=== PATIENT | male | born 1950 | race Caucasian/White ===

== ENCOUNTER 2019-07-29 08:40 | Outpatient (CLI) | payer MEDICARE, BC ==
--- NOTE | 2019-07-29 09:56 | ULT ---
GALLBLADDER ULTRASOUND: HISTORY: Right upper quadrant pain. FINDINGS: Real-time imaging of the right upper quadrant shows some tiny echogenic mobile densities within the g allbladder. These do not definitely shadow and appear similar to a previous ultrasound exam of 12/06. No gallbladder wall thickening. The common duct is 4 mm. Visualized liver parenchyma is unr emarkable. The right kidney is normal in size. There is a small cyst measuring 1.5 cm. The pancreas is obscure d. IMPRESSION: Small nonshadowing mobile echogenic densities within the gallbladder. These are possibly tiny gallst ones with some minimal sludge. This is a very similar appearance to the previous 2017 exam. The com mon duct is normal in caliber. The technologist describes a negative ultrasound Chambers's sign. POS: [facility]KI
== END 2019-07-29 08:41 | disposition home or self-care (01) ==
LOC: BICULT 08:40
PROVIDERS: ATTEND Internal Medicine Gastroenterology
DX: R10.9 Unspecified abdominal pain (principal); K21.9 Gastro-esophageal reflux disease without esophagitis; K30 Functional dyspepsia; K82.8 Other specified diseases of gallbladder
CPT/HCPCS: 76705

== ENCOUNTER 2023-03-15 08:17 | Outpatient (CLI) | payer MEDICARE | END 2023-03-15 08:18 | disposition home or self-care (01) | LOC: BICULT 08:17 | PROVIDERS: ATTEND Student in an Organized Health Care Education/Training Program | DX: Z13.6 Encounter for screening for cardiovascular disorders (principal) | CPT/HCPCS: 76775 ==

== ENCOUNTER 2025-01-23 07:41 | Outpatient (CLI) | payer MEDICARE | END 2025-01-23 07:42 | disposition home or self-care (01) | LOC: ULT 07:41 | PROVIDERS: ATTEND Student in an Organized Health Care Education/Training Program | DX: N18.31 Chronic kidney disease, stage 3a (principal); R10.11 Right upper quadrant pain | CPT/HCPCS: 76700; 76770 ==